=== PATIENT | female | born 1955 | race Caucasian/White ===

== ENCOUNTER → 2023-07-23 08:39 | Outpatient (REF) | payer OTHER, SELFPAY ==
[2023-07-23 09:13] LABS: % Basophils 0.2 % (0-2); % Eosinophils 0.9 % (0-6); % Immature Granulocytes 0.2 % (0-0.5); % Lymphocytes 19.5 % (20.5-51.1); % Monocytes 9.6 % (1.7-9.3); % Neutrophils 69.6 % (42.2-75.2); Absolute Eosinophils 0.1 10^3/uL (0-0.7); Absolute Lymphocytes 1.8 10^3/uL (1.2-3.4); Absolute Monocytes 0.9 10^3/uL (0.1-0.6); Absolute Neutrophils 6.5 10^3/uL (1.4-6.5); Hematocrit 39.7 % (37.0-47.0); Hemoglobin 14.3 g/dL (12.0-16.0); Mean Corpuscular Hgb 32.8 pg (27.0-31.0); Mean Corpuscular Volume 91.1 fL (81.0-99.0); Mean Platelet Volume 8.7 fL (7.4-10.4); Nucleated Red Blood Cells % 0 %; Platelet Count 303 10^3/uL (130-400); Red Blood Cell Count 4.36 10^6/uL (4.20-5.40); Red Cell Dist. Width 12.3 % (11.5-14.5); White Blood Cell Count 9.3 10^3/uL (4.8-10.8)
[2023-07-23 10:09] LABS: ALT (SGPT) 17 U/L (0-35); AST (SGOT) 24 U/L (14-36); Albumin 4.3 g/dl (3.5-5.0); Alkaline Phosphatase 81 U/L (38-126); Blood Urea Nitrogen 13 mg/dl (7-17); Calcium 10.1 mg/dl (8.4-10.2); Carbon Dioxide 31 mmol/L (22-30); Chloride 90 mmol/L (98-107); Glucose 88 mg/dl (70-99); Potassium 4.4 mmol/L (3.5-5.1); Sodium 131 mmol/L (135-145); Total Bilirubin 0.7 mg/dl (0.2-1.3); Total Protein 7.3 g/dl (6.3-8.2); eGFR > 60.00
== END ==
LOC: REG 08:39
PROVIDERS: ATTENDING PHYSICIAN Internal Medicine Hematology & Oncology; FAMILY PHYSICIAN Family Medicine
DX: C50.411 Malignant neoplasm of upper-outer quadrant of right female breast (principal); Z17.0 Estrogen receptor positive status [ER+]
CPT/HCPCS: 36415; 80053; 85025

== ENCOUNTER → 2024-01-02 07:59 | Outpatient (REF) | payer OTHER, SELFPAY | LOC: WDC 07:59 | PROVIDERS: ATTENDING PHYSICIAN Nurse Practitioner Adult Health; FAMILY PHYSICIAN Family Medicine | DX: C50.411 Malignant neoplasm of upper-outer quadrant of right female breast (principal); Z12.31 Encounter for screening mammogram for malignant neoplasm of breast | CPT/HCPCS: 77063; 77067 ==

== ENCOUNTER 2024-01-25 06:21 | Day surgery (SDC) | payer OTHER, SELFPAY ==
[2024-01-10 07:32] VITALS: BMI 30.8
[2024-01-10 09:12] LABS: Hematocrit 36.6 % (37.0-47.0); Mean Corp Hgb Conc. 35.5 g/dL (33.0-37.0); Mean Corpuscular Hgb 32.9 pg (27.0-31.0); Mean Corpuscular Volume 92.7 fL (81.0-99.0); Mean Platelet Volume 8.9 fL (7.4-10.4); Platelet Count 318 10^3/uL (130-400); Red Blood Cell Count 3.95 10^6/uL (4.20-5.40); Red Cell Dist. Width 13.2 % (11.5-14.5); White Blood Cell Count 6.2 10^3/uL (4.8-10.8)
[2024-01-10 09:32] LABS: ALT (SGPT) 15 U/L (0-35); AST (SGOT) 23 U/L (14-36); Albumin 4.2 g/dl (3.5-5.0); Alkaline Phosphatase 80 U/L (38-126); Blood Urea Nitrogen 14 mg/dl (7-17); Calcium 9.8 mg/dl (8.4-10.2); Carbon Dioxide 31 mmol/L (22-30); Chloride 96 mmol/L (98-107); Estimated Creatinine Clearance 73 ml/min; Glucose 87 mg/dl (70-99); Potassium 4.5 mmol/L (3.5-5.1); Sodium 136 mmol/L (135-145); Total Bilirubin 0.8 mg/dl (0.2-1.3); Total Protein 6.7 g/dl (6.3-8.2); eGFR > 60.00
[2024-01-25] VITALS (9 sets, daily range): BP systolic 110–134; BP diastolic 48–74; BMI 31.7
--- NOTE | 2024-01-25 07:08 | HP.FOC2 ---
Focused History & Physical
Chief Complaint
HPI:
Chief Complaint: Symptomatic cholelithiasis
HPI / Indication for Planned Procedure: Patient is a 68-year-old female recently seen in outpatient surgical evaluation secondary to a few month history of intermittent postprandial right upper quadrant abdominal pain. Events typically occur within
30 minutes or so of eating and will last about an hour. Occurs at various meals throughout the day and not on a regular basis. Some radiation towards the right back. Within an hour or so the pain and discomfort dissipates and she feels well. No
nausea or vomiting. Bowels are generally moving regularly.
Ultrasound imaging identified gallstones measuring over 1 cm in size. No wall thickening, no biliary ductal dilation. Preoperative labs within normal limits.
Relevant Past Medical History: Other (HTN, high cholesterol, GERD, history of thrombophlebitis, history of right breast cancer status post lumpectomy and radiation, history of obesity but 70 pound weight loss with dietary changes, exercise and
medication)
Relevant Social History: Negative
Relevant Family History: Negative
Relevant Past Surgical History: Positive for (Right breast biopsy x 2, right breast lumpectomy, bunionectomy, tonsils and adenoids, open appendectomy in the for appendicitis)
Review of Systems
Review of Pertinent Systems: All Systems Negative
Medication
See Medication form for detailed medications: Yes
Medication List (including Herbals & OTC):
valsartan 80 mg-hydrochlorothiazide 12.5 mg tablet (Diovan HCT) 1 tab PO DAILY 01/14/08
anastrozole 1 mg tablet 1 mg PO HS 01/17/24
calcium carbonate (Calcium 600) 600 mg PO HS 01/17/24
cholecalciferol (vitamin D3) 50 mcg (2,000 unit) capsule (Vitamin D3) 50 mcg PO DAILY 01/17/24
omeprazole 20 mg tablet,delayed release 20 mg PO DAILY 01/17/24
semaglutide (weight loss) 2.4 mg/0.75 mL subcutaneous pen injector (Wegovy) 2.4 mg SC QWEEK 01/17/24
simvastatin 40 mg tablet 40 mg PO HS 01/17/24
turmeric 400 mg capsule 400 mg PO DAILY 01/17/24
Medications Reviewed: Yes
Allergies and Reactions
Patient has Allergies: No
Noted Allergies and Reactions:
Allergy/AdvReac Type Severity Reaction Status Date / Time
No Known Allergies Allergy Verified 01/17/24 11:13
Pertinent Physical Exam
All Other Systems: Negative
Head/Neck: Normal
Lungs: Normal
Heart: Normal
Abdomen: Normal
Extremities: Normal
Neurological: Normal
Diagnosis / Assessment
68-year-old female presenting for cholecystectomy for management of symptomatic cholelithiasis
Plan / Procedure
Laparoscopic cholecystectomy
Anesthesia/Sedation to be done by Anesthesia Provider: Yes
[2024-01-25] MEDS: TYLENOL 1000 MG PO (08:00)
--- NOTE | 2024-01-25 08:02 | W.SUR.PREOP ---
Pre-Operative Surgical Note
-
I have examined this patient prior to the performance of the scheduled procedure.
The patient's condition is unchanged from the time of the current History and
Physical and the patient is able to undergo the scheduled procedure.
[2024-01-25] MEDS: NORMOSOL-R/PLASMALYTE-A 1000 IV (08:05)
--- NOTE | 2024-01-25 09:42 | W.IMMPOSTOP ---
Addendum entered and electronically signed by Chase Joseph MD 01/25/24 09:49:
#[id number]
Original Note:
Surgical Immed Post Op Note
-
Primary Surgeon: Jake
Assisting Surgeon: Harrison Boykin
Pre-op Diagnosis: Symptomatic cholelithiasis
Post-op Diagnosis: Symptomatic cholelithiasis
Procedure Performed: Laparoscopic cholecystectomy
Anesthesia Type: GETA +0.25% Marcaine
Specimen / Cultures: Gallbladder
Estimated Blood Loss: 6 mL
Complications: None immediate
Operative Findings: Gallbladder with stones, few filmy adhesions. Cystic duct/artery controlled with hemoclips. Gallbladder extracted at the 12 mm trocar site.
Patient's updated postoperatively in waiting area.
== END 2024-01-25 11:30 | disposition home or self-care (01) ==
LOC: SDS 06:21
PROVIDERS: ATTENDING PHYSICIAN Surgery; FAMILY PHYSICIAN Family Medicine
DX: K80.10 Calculus of gallbladder with chronic cholecystitis without obstruction (principal)
CPT/HCPCS: 47562; 88304; 36415; 80053; 85027; 93005

== ENCOUNTER → 2024-03-03 09:30 | Outpatient (REF) | payer OTHER, SELFPAY ==
[2024-03-03 10:18] LABS: % Basophils 0.4 % (0-2); % Eosinophils 1.4 % (0-6); % Immature Granulocytes 0.2 % (0-0.5); % Lymphocytes 28.4 % (20.5-51.1); % Monocytes 9.7 % (1.7-9.3); % Neutrophils 59.9 % (42.2-75.2); Absolute Eosinophils 0.1 10^3/uL (0-0.7); Absolute Lymphocytes 1.6 10^3/uL (1.2-3.4); Absolute Monocytes 0.5 10^3/uL (0.1-0.6); Absolute Neutrophils 3.3 10^3/uL (1.4-6.5); Hematocrit 35.8 % (37.0-47.0); Hemoglobin 12.5 g/dL (12.0-16.0); Mean Corp Hgb Conc. 34.9 g/dL (33.0-37.0); Mean Corpuscular Hgb 32.5 pg (27.0-31.0); Mean Platelet Volume 8.8 fL (7.4-10.4); Nucleated Red Blood Cells % 0 %; Platelet Count 271 10^3/uL (130-400); Red Blood Cell Count 3.85 10^6/uL (4.20-5.40); Red Cell Dist. Width 12.9 % (11.5-14.5); White Blood Cell Count 5.6 10^3/uL (4.8-10.8)
[2024-03-03 10:47] LABS: ALT (SGPT) 16 U/L (0-35); AST (SGOT) 24 U/L (14-36); Albumin 4.1 g/dl (3.5-5.0); Alkaline Phosphatase 77 U/L (38-126); Blood Urea Nitrogen 11 mg/dl (7-17); Calcium 9.9 mg/dl (8.4-10.2); Carbon Dioxide 32 mmol/L (22-30); Chloride 96 mmol/L (98-107); Glucose 94 mg/dl (70-99); Potassium 4.8 mmol/L (3.5-5.1); Sodium 137 mmol/L (135-145); Total Bilirubin 0.6 mg/dl (0.2-1.3); Total Protein 6.6 g/dl (6.3-8.2); eGFR > 60.00
[2024-03-03 14:22] LABS: Vitamin D, 25-OH*** 61.8 ng/mL (30-80)
== END ==
LOC: REG 09:30
PROVIDERS: ATTENDING PHYSICIAN Internal Medicine Hematology & Oncology; FAMILY PHYSICIAN Family Medicine
DX: C50.411 Malignant neoplasm of upper-outer quadrant of right female breast (principal); Z17.0 Estrogen receptor positive status [ER+]
CPT/HCPCS: 36415; 80053; 82306; 85025

== ENCOUNTER → 2024-09-10 07:30 | Outpatient (REF) | payer OTHER, SELFPAY ==
[2024-09-10 08:27] LABS: Hemoglobin 13.2 g/dL (12.0-16.0); Mean Corp Hgb Conc. 35.7 g/dL (33.0-37.0); Mean Corpuscular Hgb 33.2 pg (27.0-31.0); Mean Corpuscular Volume 93.2 fL (81.0-99.0); Red Blood Cell Count 3.97 10^6/uL (4.20-5.40); Red Cell Dist. Width 12.8 % (11.5-14.5); White Blood Cell Count 5.5 10^3/uL (4.8-10.8)
[2024-09-10 08:29] LABS: ALT (SGPT) 20 U/L (0-35); AST (SGOT) 27 U/L (14-36); Albumin 3.7 g/dl (3.5-5.0); Alkaline Phosphatase 66 U/L (38-126); Blood Urea Nitrogen 14 mg/dl (7-17); Calcium 9.6 mg/dl (8.4-10.2); Carbon Dioxide 30 mmol/L (22-30); Chloride 97 mmol/L (98-107); Glucose 94 mg/dl (70-99); Potassium 4.4 mmol/L (3.5-5.1); Sodium 134 mmol/L (135-145); Total Bilirubin 0.7 mg/dl (0.2-1.3); Total Protein 6.4 g/dl (6.3-8.2); eGFR > 60.00
[2024-09-10 10:02] LABS: % Basophils 0.4 % (0-2); % Eosinophils 2.5 % (0-6); % Immature Granulocytes 0.2 % (0-0.5); % Lymphocytes 31.6 % (20.5-51.1); % Monocytes 12.1 % (1.7-9.3); % Neutrophils 53.2 % (42.2-75.2); Absolute Eosinophils 0.1 10^3/uL (0-0.7); Absolute Lymphocytes 1.8 10^3/uL (1.2-3.4); Absolute Monocytes 0.7 10^3/uL (0.1-0.6); Absolute Neutrophils 2.9 10^3/uL (1.4-6.5); Nucleated Red Blood Cells % 0 %
== END ==
LOC: RAD 07:30
PROVIDERS: ATTENDING PHYSICIAN Internal Medicine Hematology & Oncology; FAMILY PHYSICIAN Family Medicine
DX: Z13.820 Encounter for screening for osteoporosis (principal); Z78.0 Asymptomatic menopausal state; M85.89 Other specified disorders of bone density and structure, multiple sites; C50.411 Malignant neoplasm of upper-outer quadrant of right female breast; Z17.0 Estrogen receptor positive status [ER+]
CPT/HCPCS: 36415; 77080; 80053; 85025

== ENCOUNTER → 2025-01-05 10:06 | Outpatient (REF) | payer OTHER, SELFPAY | LOC: WDC 10:06 | PROVIDERS: ATTENDING PHYSICIAN Nurse Practitioner Adult Health; FAMILY PHYSICIAN Family Medicine | DX: Z12.31 Encounter for screening mammogram for malignant neoplasm of breast (principal); Z85.3 Personal history of malignant neoplasm of breast; C50.411 Malignant neoplasm of upper-outer quadrant of right female breast; Z17.0 Estrogen receptor positive status [ER+] | CPT/HCPCS: 77063; 77067 ==

== ENCOUNTER → 2025-03-10 09:49 | Outpatient (REF) | payer OTHER, SELFPAY ==
[2025-03-10 10:49] LABS: Hematocrit 37.5 % (37.0-47.0); Hemoglobin 12.6 g/dL (12.0-16.0); Mean Corp Hgb Conc. 33.6 g/dL (33.0-37.0); Mean Corpuscular Volume 97.9 fL (81.0-99.0); Platelet Count 268 10^3/uL (130-400); Red Cell Dist. Width 13.2 % (11.5-14.5)
[2025-03-10 11:24] LABS: ALT (SGPT) 18 U/L (0-35); AST (SGOT) 25 U/L (14-36); Albumin 4.1 g/dl (3.5-5.0); Alkaline Phosphatase 72 U/L (38-126); Blood Urea Nitrogen 12 mg/dl (7-17); Calcium 9.2 mg/dl (8.4-10.2); Carbon Dioxide 31 mmol/L (22-30); Chloride 96 mmol/L (98-107); Glucose 95 mg/dl (70-99); Potassium 4.1 mmol/L (3.5-5.1); Sodium 134 mmol/L (135-145); Total Protein 6.7 g/dl (6.3-8.2); eGFR > 60.00
[2025-03-10 11:36] LABS: Vitamin D, 25-OH*** 62.6 ng/mL (30-80)
== END ==
LOC: REG 09:49
PROVIDERS: ATTENDING PHYSICIAN Internal Medicine Hematology & Oncology; FAMILY PHYSICIAN Family Medicine
DX: C50.411 Malignant neoplasm of upper-outer quadrant of right female breast (principal); Z17.0 Estrogen receptor positive status [ER+]
CPT/HCPCS: 36415; 80053; 82306; 85027